=== PATIENT | male | born 1990 | race Asian ===

== ENCOUNTER 2024-09-24 16:49 | Emergency (ER) | payer MEDICAID ==
[2024-09-24] MEDS: cefTRIAXone 2 GM, Lidocaine 1% 4.2 ML IM ONE (17:22)
== END 2024-09-24 18:33 | disposition home or self-care (01) ==
LOC: JD.ED 16:49
DX: L03.011 Cellulitis of right finger (principal)
CPT/HCPCS: 10060; 73130; 96372; 99283; A9270; J0696; J2003